=== PATIENT | male | born 1975 | race Caucasian/White ===

== ENCOUNTER → 2023-09-13 | Outpatient (CLI) | payer OTHER, SELFPAY ==
[2023-09-13 10:58] LABS: Glucose GTT-30 minutes 215 mg/dL (110-170)
[2023-09-13 11:39] LABS: Glucose GTT- Fasting 109 mg/dL (74-106)
[2023-09-13 11:40] LABS: Glucose GTT- 1 Hour 254 mg/dL (120-170)
[2023-09-13 12:24] LABS: Glucose GTT- 2 Hour 177 mg/dL (70-120)
== END | disposition home or self-care (01) ==
LOC: LAB.FUTURE 09:39 → LAB 09:44
PROVIDERS: Referring Provider Chiropractor; Visit Provider Chiropractor
DX: E11.9 Type 2 diabetes mellitus without complications (principal)
CPT/HCPCS: 36415; 82951; 82952